=== PATIENT | male | born 1990 | race Caucasian/White ===

== ENCOUNTER 2019-01-22 20:59 | Emergency (ER) | payer SELFPAY ==
[2019-01-23] MEDS ORDERED: NALOXONE HCL 1 MG/ML 2 ML SYG IM ONE
[2019-01-23 02:00] VITALS: BP 128/78
== END 2019-01-23 03:01 | disposition home or self-care (01) ==
LOC: EMS 21:00
DX: T40.1X1A Poisoning by heroin, accidental (unintentional), initial encounter (principal); F41.9 Anxiety disorder, unspecified; F11.90 Opioid use, unspecified, uncomplicated; Z88.0 Allergy status to penicillin; Z88.1 Allergy status to other antibiotic agents; Y92.89 Other specified places as the place of occurrence of the external cause
CPT/HCPCS: 96372; 99283; J2310